=== PATIENT | female | born 2000 | race Caucasian/White ===

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

== ENCOUNTER 2021-08-16 14:25 | Emergency (ER) | payer BC, SELFPAY ==
[2021-08-16 14:44] VITALS: BP 125/85; PULSE 86; RESP 16; TEMP 37.2; O2SAT 97
--- NOTE | 2021-08-16 17:19 | CTR_ITS ---
PROCEDURE INFORMATION: Exam: CT Abdomen And Pelvis With Contrast Exam date and time: 08/16/2021 7:14 PM Age: 20 years old Clinical indication: Abdominal pain; Flank; Right; Additional info: Right side abdominal pain, n/v TECHNIQUE: Imaging protocol: Computed tomography of the abdomen and pelvis with contrast. Radiation optimization: All CT scans at this facility use at least one of these dose optimization techniques: automated exposure control; mA and/or kV adjustment per patient size (includes targeted exams where dose is matched to clinical indication); or iterative reconstruction. Contrast material: OMNI 350; Contrast volume: 95 ml; Contrast route: INTRAVENOUS (IV); COMPARISON: CT Abdomen/Pelvis Renal [id number] 03/25/2019 7:19 PM RADIATION DOSE METRICS: Total DLP (mGy-cm): 857.63 FINDINGS: Lungs: Lung bases are clear. Liver: The liver is normal. Gallbladder and bile ducts: The gallbladder is normal. There is no biliary dilation. Pancreas: The pancreas is unremarkable. Spleen: The spleen is unremarkable. Adrenal glands: The adrenal glands are unremarkable. Kidneys and ureters: The kidneys are unremarkable. No hydronephrosis or stones. No ureteral dilation. Stomach and bowel: The stomach is unremarkable. The small bowel is nondilated. The colon is unremarkable. Appendix: The appendix is not visible. Intraperitoneal space: There is no free air or significant intraperitoneal free fluid. Vasculature: The aorta is unremarkable. There is no aneurysm. The portal, splenic and superior mesenteric veins are patent. Lymph nodes: There is no lymphadenopathy in the retroperitoneum, mesentery, pelvis or inguinal regions. Urinary bladder: The urinary bladder is unremarkable. The urinary bladder is unremarkable. Reproductive: The uterus is unremarkable. There is no adnexal mass or large cyst. Bones/joints: Bones are unremarkable. Soft tissues: The abdominal wall is intact. CT/CT abdomen pelvis w con* [id number] IMPRESSION: No acute findings.
--- NOTE | 2021-08-16 17:20 | ED_ITS ---
HPI - Abdominal Pain General: Chief Complaint: Abdominal Pain Stated Complaint: Gallbladder pain Time Seen by Provider: 08/16/21 17:05 History of Present Illness: Patient is a 20-year-old female comes to the ED with abdominal pain. Symptoms started approximately 1 month ago. Over the last 24 hours her abdominal pain is gotten worse. The abdominal pain is located in the right side of the abdomen and she rates her pain an 8 out of 10. Pain is constant. Pain radiates to right lower back as well. She is having nausea and vomiting and she is having trouble keeping food and fluids down over the last 24 hours. She reports feeling a subjective fever today and took some Tylenol earlier during the day. Eating food worsens the pain. Associated Symptoms: Reports nausea and vomiting; Denies chills, constipation, diarrhea, dysuria, fever(s), hematochezia and hematuria Review of Systems Const: Denies: fever(s), chills or fatigue Eyes: Denies: change in vision or eye discomfort ENMT: Denies: throat pain, odynophagia, nasal discharge or nasal congestion Card: Denies: chest pain, palpitations, edema, swelling of feet/ankles, dyspnea on exertion or orthopnea Resp: Denies: dyspnea, productive cough or non-productive cough GI: Reports: abdominal pain, nausea and vomiting; Denies: diarrhea, constipation or hematochezia : Denies: flank pain, dysuria or hematuria Musc: Denies: neck pain, back pain or extremity swelling Skin/Breast: Denies: rash or new lesions Neuro: Denies: headache(s), numbness in extremities or weakness in extremities PFS ED PFSH: Medical History Aspergillosis, allergic bronchopulmonary (~2009) treated and managed No pertinent past medical history neghx: htn,dm,thyroid,dvt/pe PCP: Alea Antoine Surgical History History of endoscopy (~2009) History of lung biopsy (~2010) History of tonsillectomy and adenoidectomy (~2012) Hx of colonoscopy (~2009) Family History Father Heart disease Denies family history of Colon cancer Ovarian cancer Diabetes Hypercholesteremia Breast cancer Hypertension Uterine cancer Thyroid disease Stroke Physical Exam Const: COMMON NORMALS: patient oriented x3 and alert GENERAL APPEARANCE: cooperative and comfortable HENMT: COMMON NORMALS: normocephalic HEAD & SCALP: normocephalic MOUTH: Normal oral and palatal mucosa present THROAT: posterior oropharynx normal and uvula midline Eye: COMMON NORMALS: Equal, round and reactive pupils present and conjunctivae normal CONJUNCTIVA: Yes conjunctivae normal PUPIL: Yes Equal, round and reactive pupils present Neck/C-Spine: COMMON NORMALS: supple GENERAL: Yes normal visual inspection Resp: COMMON NORMALS: normal respiratory effort, No retractions, No use of accessory muscles and clear to auscultation bilaterally AUSCULTATION: clear to auscultation bilaterally Cardio: COMMON NORMALS: regular rate, regular rhythm, S1 normal heart sound present, S2 normal heart sound present, No gallops present (Cardio), No clicks present (Cardio), No murmurs present (Cardio) and Peripheral pulses 2+ throughout RATE: regular rate RHYTHM: regular rhythm HEART SOUNDS: S1 normal heart sound present and S2 normal heart sound present PERIPHERAL PULSES: Peripheral pulses 2+ throughout GI: COMMON NORMALS: Normal to inspection, nondistended, normoactive bowel sounds present, Soft to palpation and no masses PALPATION: Yes Soft to palpation and Yes Tenderness to palpation present (GI) Details: RLQ and RUQ : COMMON NORMALS: Yes no CVA tenderness BLADDER/KIDNEY EXAM: Yes no CVA tenderness Back/Pelvis: COMMON NORMALS: no CVA tenderness Extremity: COMMON NORMALS: normal to inspection Neuro: COMMON NORMALS: patient oriented x3 SENSORIUM/ORIENTATION: Yes alert GAIT: Yes Normal gait present Skin: GENERAL SKIN EXAM: dry skin Course Vital Signs: Vital signs: Vital Signs Temperature 98.9 F 08/16/21 21:20 Pulse Rate 82 08/16/21 21:20 Respiratory Rate 17 08/16/21 21:20 Blood Pressure 119/69 08/16/21 21:20 Pulse Oximetry 97 08/16/21 21:20 MDM - Abdominal Pain Medical Decision Making Patient is a 20-year-old female comes to the ED with abdominal pain, nausea and vomiting. Symptoms have been going on now for over a month but says they worsened over the past couple days. Vitals are stable. Patient appears nontoxic and in no acute distress or pain. She has some generalized tenderness throughout the right side of her abdomen. Rest of exam is benign. Labs are unremarkable. UA showed no signs of any infection. hCG negative. CT of abdomen pelvis showed no acute findings. Patient diagnosed with abdominal pain with no acute cause identified. She was discharged home with a prescription for Zofran. She was told to follow-up with her PCP in the next week for reevaluation. Return to ED precautions given. Patient understood and agreed with plan. Lab Data I reviewed the patient's lab results. : 08/16/21 17:14 08/16/21 17:14 Labs/Radiology: Radiology Impressions Abdomen/Pelvis CT 08/16/21 17:19 IMPRESSION: No acute findings. Laboratory Results WBC 9.2 10^3/uL (4.5-13.0) 08/16/21 17:14 RBC 4.42 10^6/uL (4.1-5.3) 08/16/21 17:14 Hgb 13.4 g/dL (11.5-15.3) 08/16/21 17:14 Hct 40.2 % (37.0-47.0) 08/16/21 17:14 MCV 91.0 fl (81-99) 08/16/21 17:14 MCH 30.3 pg (28.0-34.0) 08/16/21 17:14 MCHC 33.3 g/dL (30.0-36.0) 08/16/21 17:14 RDW 12.6 % (12.1-15.1) 08/16/21 17:14 Plt Count 308 10^3/cmm (130-400) 08/16/21 17:14 MPV 10.4 fL (7.4-10.4) 08/16/21 17:14 Neut % (Auto) 71.9 % 08/16/21 17:14 Lymph % (Auto) 23.7 % 08/16/21 17:14 [place] % (Auto) 3.5 % 08/16/21 17:14 Eos % (Auto) 0.0 % 08/16/21 17:14 Baso % (Auto) 0.7 % 08/16/21 17:14 Neut # (Auto) 6.60 10^3/uL (1.8-8.0) 08/16/21 17:14 Lymph # (Auto) 2.2 10^3/uL (1.5-6.5) 08/16/21 17:14 [place] # (Auto) 0.3 10^3/uL (0.2-0.9) 08/16/21 17:14 Eos # (Auto) 0.0 10^3/uL (0.0-0.8) 08/16/21 17:14 Baso # (Auto) 0.1 10^3/uL (0.0-0.1) 08/16/21 17:14 Nucleated RBC % (auto) 0 % 08/16/21 17:14 Nucleated RBCs # 0.0 /100WBC 08/16/21 17:14 Sodium 140 mmol/L (136-145) 08/16/21 17:14 Potassium 3.6 mmol/L (3.5-5.1) 08/16/21 17:14 Chloride 105 mmol/L (98-107) 08/16/21 17:14 Carbon Dioxide 20 mmol/L (22-29) L 08/16/21 17:14 Anion Gap 18.6 (5-19) 08/16/21 17:14 BUN 9 mg/dL (6-20) 08/16/21 17:14 Creatinine 0.6 mg/dL (0.5-0.9) 08/16/21 17:14 GFR Calculation 128.8 mL/min (90-130) 08/16/21 17:14 Glucose 76 mg/dL (65-115) 08/16/21 17:14 Calculated Osmolality 287 mOsm/kg (285-295) 08/16/21 17:14 Calcium 9.4 mg/dL (8.5-10.5) 08/16/21 17:14 Total Bilirubin 0.4 mg/dL (0.15-1.2) 08/16/21 17:14 AST 13 U/L (0-32) 08/16/21 17:14 ALT 8 U/L (0-33) 08/16/21 17:14 Alkaline Phosphatase 34 IU/L (35-105) L 08/16/21 17:14 Total Protein 7.1 g/dL (6.6-8.7) 08/16/21 17:14 Albumin 4.5 g/dL (3.5-5.2) 08/16/21 17:14 Globulin 2.6 g/dL (1.3-4.6) 08/16/21 17:14 Lipase 16 U/L (13-60) 08/16/21 17:14 HCG, Qual Negative (Negative) 08/16/21 18:08 Urine Color Yellow (Yellow) 08/16/21 19:00 Urine Appearance Clear (CLEAR) 08/16/21 19:00 Urine pH 6.5 (5-7) 08/16/21 19:00 Ur Specific [place] 1.000 (1.005-1.030) L 08/16/21 19:00 Urine Protein Trace (Negative) 08/16/21 19:00 Urine Glucose (UA) Norm (Normal) 08/16/21 19:00 Urine Ketones 2+ (Negative) H 08/16/21 19:00 Urine Blood 3+ (Negative) H 08/16/21 19:00 Urine Nitrate Negative (Negative) 08/16/21 19:00 Urine Bilirubin Neg (Negative) 08/16/21 19:00 Urine Urobilinogen Norm mg/dL (Negative) 08/16/21 19:00 Ur Leukocyte Esterase Trace (Negative) H 08/16/21 19:00 Urine RBC 10-15 /hpf (0-2) H 08/16/21 19:00 Urine WBC 0-4 /hpf (0-5) H 08/16/21 19:00 Ur Squamous Epith Cells 5-10 /hpf (0-5) H 08/16/21 19:00 Amorphous Sediment Not Reportable 08/16/21 19:00 Urine Bacteria Trace /hpf (NONE) 08/16/21 19:00 Urine Mucus Trace /hpf 08/16/21 19:00 Discharge Plan Discharge Patient Disposition: Home Clinical Impression: Abdominal pain Qualifiers: Abdominal location: generalized Qualified Code(s): R10.84 - Generalized abdominal pain Condition: Stable Prescriptions: New ondansetron 4 mg tablet,disintegrating 4 mg PO Q8H PRN (Reason: nausea and vomiting) Qty: 15 0RF No Action Xulane 150-35 mcg/24 hr patch weekly 1 patch transdermal Q7D Qty: 9 3RF Rx Instructions: apply once weekly for 3 weeks of a 4-week cycle Discharge Orders: Discharge ED (Routine); Ordered 08/16/21 Ordered By: Micah Collins: Alea Antoine MD [Staff Physician] - Discharge Diet: Regular Discharge Activity: Increase activity as tolerated Patient Instructions: Abdominal Pain (ED) Activity Restrictions/Additional Instructions: Follow-up with medical provider as directed in the next 5 to 7 days for reevaluation. Take medications as prescribed. Return to the ER or your medical provider if condition worsens. Please read and understand discharge instructions. Thank you for choosing [facility] for your healthcare needs today. Please realize this is an emergency room and that we are providing you with a medical screening exam and this may not be complete and all inclusive of all the testing and or work up that you may need to determine your ailment or severity of your illness. It is very important that you follow up as instructed or that you return to the Emergency Department should you have concerns or if your condition changes or worsens in any way. Coding Level of Care Code ED [facility] [employer] Exam Comprehensive
[2021-08-16 17:35] VITALS: RESP 17
[2021-08-16] MEDS: morphine 4 mg/mL SDV 1 mL IVP (17:35)
[2021-08-16] MEDS: sodium chloride 0.9% 1,000 ML 999 ML IV (17:36)
[2021-08-16] MEDS: ondansetron 2 mg/ML SDV 2 mL 4 MG IVP (17:36)
[2021-08-16 17:39] LABS: Basophils # 0.1 10^3/uL (0.0-0.1); Basophils % 0.7 %; Hematocrit 40.2 % (37.0-47.0); Hemoglobin 13.4 g/dL (11.5-15.3); Lymphocytes # 2.2 10^3/uL (1.5-6.5); Lymphocytes % 23.7 %; Mean Corpuscular HGB Conc 33.3 g/dL (30.0-36.0); Mean Corpuscular Hemoglobin 30.3 pg (28.0-34.0); Mean Platelet Volume 10.4 fL (7.4-10.4); Monocytes # 0.3 10^3/uL (0.2-0.9); Monocytes % 3.5 %; Neutrophils % 71.9 %; Nucleated Red Blood Cells % 0 %; Platelet Count 308 10^3/cmm (130-400); Red Blood Count 4.42 10^6/uL (4.1-5.3); Red Cell Distribution Width 12.6 % (12.1-15.1); White Blood Count 9.2 10^3/uL (4.5-13.0)
[2021-08-16 18:03] LABS: Alanine Aminotransferase 8 U/L (0-33); Albumin Level 4.5 g/dL (3.5-5.2); Alkaline Phosphatase 34 IU/L (35-105); Anion Gap 18.6 (5-19); Aspartate Amino Transferase 13 U/L (0-32); Blood Urea Nitrogen 9 mg/dL (6-20); Calcium 9.4 mg/dL (8.5-10.5); Carbon Dioxide 20 mmol/L (22-29); Chloride 105 mmol/L (98-107); Globulin 2.6 g/dL (1.3-4.6); Glomerular Filtration Rate 128.8 mL/min (90-130); Glucose 76 mg/dL (65-115); Lipase 16 U/L (13-60); Osmolality Calculated 287 mOsm/kg (285-295); Potassium 3.6 mmol/L (3.5-5.1); Sodium 140 mmol/L (136-145); Total Bilirubin 0.4 mg/dL (0.15-1.2); Total Protein 7.1 g/dL (6.6-8.7)
[2021-08-16 18:58] LABS: HCG, Serum Qual Negative (Negative)
[2021-08-16] MEDS: iohexol 350 mg/mL 100 mL Btl IV (19:12)
[2021-08-16 20:19] VITALS: BP 119/69; PULSE 82; RESP 17; TEMP 37.2; O2SAT 97
[2021-08-16 21:01] LABS: Add Urine Microscopic? YES; Bilirubin Urine Neg (Negative); Blood Urine 3+ (Negative); Glucose Urine UA Norm (Normal); Ketones Urine 2+ (Negative); Leukocyte Esterase Urine Trace (Negative); Nitrate Urine Negative (Negative); Protein Urine Trace (Negative); Urine Appearance Clear (CLEAR); Urine Color Yellow (Yellow); Urobilinogen Urine Norm (Negative); pH Urine 6.5 (5-7)
[2021-08-16 21:10] LABS: Add Urine Culture? No; Bacteria Urine TRACE /hpf; Mucus Urine TRACE /hpf; WBC Urine 0-4 /hpf (0-5)
[2021-08-16 21:20] VITALS: BP 119/69; PULSE 82; RESP 17; TEMP 37.2; O2SAT 97
== END 2021-08-16 21:23 | disposition home or self-care (01) ==
PROVIDERS: Physician Assistant; Emergency Provider Physician Assistant
DX: R10.84 Generalized abdominal pain (principal)
CPT/HCPCS: 74177; 80053; 81001; 83690; 84703; 85025; 96361; 96374; 96375; 99284; J2270; J2405; J7030; Q9967

== ENCOUNTER 2021-08-31 09:15 | Outpatient (CLI) | payer BC, SELFPAY ==
--- NOTE | 2021-08-31 09:25 | US_ITS ---
WS: [id number] RIGHT UPPER QUADRANT ULTRASOUND HISTORY: RUQ PAIN COMPARISON: 03/29/[address] 08/16/2021 Liver: 9.9 cm in length. Normal size liver. No bile duct dilatation or mass. Portal Vein: Normal hepatopetal flow with monophasic waveform. Gallbladder: Normally distended gallbladder. There is a soft tissue nodule towards the neck of the ga llbladder which does not shadow and with no increased vascularity. This nodule does not move with pos itioning. Soft tissue nodule measures 7 x 5 x 9 mm. CBD: 0.2 cm Pancreas: Normal size and echogenicity. Right kidney: 8.4 cm in length. Normal size and echogenicity. No hydronephrosis or mass. Aorta and IVC: Unremarkable abdominal aorta and IVC. No ascites. US/US abdomen limited [id number] IMPRESSION: 1. Nonshadowing soft tissue nodule measuring 7 x 5 x 9 mm towards the neck of the gallbladder. This may be tumefactive sludge, polyp or nonshadowing stone. S uggest follow-up imaging by ultrasound in 2-3 months to ensure resolution. If t his does not resolve surgical removal may be necessary. 2. No bile duct dilatation.
== END 2021-08-31 09:16 | disposition home or self-care (01) ==
PROVIDERS: Visit Provider Family Medicine
DX: R10.11 Right upper quadrant pain (principal); K82.8 Other specified diseases of gallbladder
CPT/HCPCS: 76705

== ENCOUNTER 2021-11-28 14:01 | Outpatient (CLI) | payer BC, SELFPAY ==
--- NOTE | 2021-11-28 14:25 | US_ITS ---
WS: [id number] ULTRASOUND BREAST LEFT TECHNIQUE: Ultrasound left breast focused area of concern. CLINICAL INFORMATION: N63.20 - Unspecified lump in the left breast, unspecified... COMPARISON: None. FINDINGS: Ultrasound LEFT breast 4:00 position 3 cm from the nipple demonstrates a gently lobulated slightly hy poechoic lesion measuring 1.8 x 0.6 x 1.3 cm most compatible with fibroadenoma in a patient this age. Recommend 6 month follow-up to confirm stability with ultrasound. No other suspicious lesions in the remainder of the LEFT breast. US/US breast LT complete [id number] IMPRESSION: BI-RADS 3 probably benign FOLLOW UP: 6 month follow-up LEFT breast ultrasound
== END 2021-11-28 14:02 | disposition home or self-care (01) ==
LOC: RAD 14:02
PROVIDERS: PCP Family Medicine; Visit Provider Nurse Practitioner Women's Health
DX: N63.20 Unspecified lump in the left breast, unspecified quadrant (principal)
CPT/HCPCS: 76641

== ENCOUNTER 2023-04-17 09:24 | Emergency (ER) | payer OTHER, BC, SELFPAY ==
[2023-04-17] VITALS (7 sets, daily range): BP systolic 103–160; BP diastolic 50–77; PULSE 68–80; RESP 18; TEMP 36.4; O2SAT 94–100; BMI 18.6
[2023-04-17 12:13] LABS: Basophils # 0.1 10^3/uL (0.0-0.1); Basophils % 0.7 %; Eosinophils # 0.1 10^3/uL (0.0-0.8); Hematocrit 41.2 % (36-47); Lymphocytes # 2.3 10^3/uL (0.8-4.8); Mean Corpuscular HGB Conc 34.2 g/dL (30-55); Mean Corpuscular Hemoglobin 30.7 pg (27-33); Mean Corpuscular Volume 89.8 fl (85-98); Mean Platelet Volume 8.7 fL (7.4-10.4); Monocytes # 0.4 10^3/uL (0.2-0.9); Monocytes % 5.1 %; Neutrophils # 4.44 10^3/uL (1.8-7.7); Neutrophils % 60.9 %; Nucleated Red Blood Cells % 0 %; Platelet Count 329 10^3/cmm (157-399); Red Blood Count 4.59 10^6/uL (3.85-5.65); Red Cell Distribution Width 12.2 % (12.1-15.1); White Blood Count 7.28 10^3/uL (3.29-11.43)
[2023-04-17 12:34] LABS: Alanine Aminotransferase 13 U/L (0-33); Albumin Level 4.4 g/dL (3.5-5.2); Alkaline Phosphatase 52 U/L (35-105); Anion Gap 14.1 (5-19); Aspartate Amino Transferase 15 U/L (0-32); Blood Urea Nitrogen 7 mg/dL (6-20); Calcium 9.4 mg/dL (8.5-10.5); Carbon Dioxide 25 mmol/L (22-29); Chloride 104 mmol/L (98-107); Globulin 2.4 g/dL (1.3-4.6); Glomerular Filtration Rate 105.6 mL/min (90-130); Glucose 97 mg/dL (65-115); Lipase 21 U/L (13-60); Osmolality Calculated 286 mOsm/kg (285-295); Potassium 4.1 mmol/L (3.5-5.1); Sodium 139 mmol/L (136-145); Total Bilirubin 0.5 mg/dL (0.15-1.2); Total Protein 6.8 g/dL (6.6-8.7)
--- NOTE | 2023-04-17 12:45 | PC.NURSE ---
ASSUMED CARE AT 1245
--- NOTE | 2023-04-17 13:05 | CTR_ITS ---
PROCEDURE INFORMATION: Exam: CT Abdomen And Pelvis With Contrast Exam date and time: 04/17/2023 4:44 PM Age: 22 years old Clinical indication: Abdominal pain; Localized; Right; Prior surgery; Surgery date: 6+ months; Surgery type: Kavya; Additional info: Abd pain TECHNIQUE: Imaging protocol: Computed tomography of the abdomen and pelvis with contrast. Radiation optimization: All CT scans at this facility use at least one of these dose optimization techniques: automated exposure control; mA and/or kV adjustment per patient size (includes targeted exams where dose is matched to clinical indication); or iterative reconstruction. Contrast material: OMNI 350; Contrast volume: 100 ml; Contrast route: INTRAVENOUS (IV); COMPARISON: CT abdomen pelvis w con* [id number] 08/16/2021 7:14 PM RADIATION DOSE METRICS: Total DLP (mGy-cm): 316 FINDINGS: Lungs: Subsegmental bibasilar atelectasis. The visualized lung bases are otherwise grossly clear. Diaphragm: No evidence of diaphragmatic defect. Liver: There is nonspecific periportal edema. No focal hepatic lesion. Gallbladder and bile ducts: Status post cholecystectomy. No evidence of intrahepatic or extrahepatic biliary dilatation. Pancreas: Unremarkable. Spleen: Unremarkable. Adrenal glands: Unremarkable. Kidneys and ureters: No renal parenchymal abnormality. No hydronephrosis or ureteral stone. Stomach and bowel: There is wall thickening of the gastric pylorus raising the question of a nonspecific gastroenteritis or peptic ulcer disease. Consider follow-up GI evaluation. No evidence of bowel obstruction, free air or pneumatosis. Appendix: Normal appendix. Intraperitoneal space: No fluid collection. Vasculature: No aneurysmal dilatation or dissection of the abdominal aorta. No evidence of IVC thrombus. Lymph nodes: No adenopathy. Urinary bladder: Unremarkable. Reproductive: Uterus and adnexa are grossly unremarkable. Trace-small physiologic free fluid in the cul-de-sac. Bones/joints: No evidence of acute fracture or aggressive osseous lesion. Soft tissues: No evidence of fluid collection, hematoma or mass-like lesion in the superficial soft tissues. CT/CT abdomen pelvis w con* [id number] IMPRESSION: 1. Wall thickening of the gastric pylorus raising the question of a nonspecific gastroenteritis or peptic ulcer disease. Consider follow-up GI evaluation. 2. Nonspecific periportal edema, which can be seen with aggressive hydration as well as hepatitis and hepatic congestion.
--- NOTE | 2023-04-17 13:06 | ED_ITS ---
HPI - Nausea/Vomiting/Diarrhea 2 General: Chief complaint: Nausea/Vomiting/Diarrhea Stated complaint: N/V, Right abd pain Time Seen by Provider: 04/17/23 12:59 Source: patient Mode of arrival: ambulatory History of Present Illness: 22-year-old female presents emergency ro om complaining of abdominal pain with persistent vomiting localizes pain to the right lower quadrant radiating into the back vomited multiple times this morning a few episodes of streaked blood vomitus no marita blood. Low-grade subjective fever. Denies dysuria urgency or frequency previously had a cholecystectomy no other abdominal surgeries. No coffee-ground emesis. MD elicited complaint: nausea and vomiting Onset (ago): hour(s) Associated nausea: Yes Associated abdominal pain: Yes Location of pain: RLQ Radiation: right flank Pain consistency: constant Severity: moderate Quality: cramping Exacerbating factors: none Relieving factors: none Associated symtoms: Reports nausea; Denies altered mental status, anxiety, bloating, change in vision, chest pain, cough, diaphoresis, decreased urine output, dizziness, dysuria, epistaxis, fatigue, fecal incontinence, fevers/chills, headache(s), anorexia, malaise, myalgias, numbness, palpitations, rash, short of breath, syncope, tenesmus, tinnitus or weakness Review of Systems 2 Const: Denies: fatigue, malaise or diaphoresis Eyes: Denies: change in vision ENMT: Denies: tinnitus or epistaxis Card: Denies: chest pain, palpitations or syncope Resp: Denies: dyspnea GI: Reports: nausea; Denies: bloating or fecal incontinence : Denies: dysuria Musc: Denies: neck pain or back pain Skin/Breast: Denies: rash Neuro: Denies: headache(s) or dizziness Psych: Denies: anxiety PFSH ED 2 PFSH: Medical History Aspergillosis, allergic bronchopulmonary (~2009) treated and managed No pertinent past medical history neghx: htn,dm,thyroid,dvt/pe PCP: Alea Antoine Surgical History History of endoscopy (~2009) History of lung biopsy (~2010) History of tonsillectomy and adenoidectomy (~2012) Hx laparoscopic cholecystectomy (~09/22/21) Hx of colonoscopy (~2009) Family History Father Heart disease Denies family history of Colon cancer Ovarian cancer Diabetes Hypercholesteremia Breast cancer Hypertension Uterine cancer Thyroid disease Stroke Physical Exam 2 Const: COMMON NORMALS: no acute distress EXAM LIMITATIONS: no altered mental status GENERAL APPEARANCE: cooperative and comfortable O RIENTATION/CONSCIOUSNESS: Yes awake, Yes oriented to person, Yes oriented to place and Yes oriented to time HENMT: COMMON NORMALS: normocephalic, atraumatic and hearing grossly normal bilaterally HEAD & SCALP: normocephalic and atraumatic Resp: COMMON NORMALS: normal respiratory effort, No retractions, No use of accessory muscles and clear to auscultation bilaterally AUSCULTATION: clear to auscultation bilaterally Cardio: COMMON NORMALS: regular rate, regular rhythm and No murmurs present (Cardio) RATE: regular rate RHYTHM: regular rhythm GI: COMMON NORMALS: Soft to palpation and No hepatosplenomegaly present A USCULTATION: Yes normoactive bowel sounds PALPATION: Yes Soft to palpation, No Tenderness to palpation present (GI), No Guarding due to palpation present (GI) and Yes No hepatosplenomegaly present Extremity: COMMON NORMALS: normal to inspection, capillary refill normal, no clubbing, cyanosis or edema, no calf tenderness and no pedal edema Neuro: SENSORIUM/ORIENTATION: Yes oriented to person, Yes oriented to place and Yes oriented to time Skin: COMMON NORMALS: no rashes or lesions noted GENERAL SKIN EXAM: no rashes or lesions noted Course 2 Vital Signs: Vital signs: Vital Signs Temperature 97.6 F 04/17/23 09:26 Pulse Rate 79 04/17/23 17:46 Respiratory Rate 18 04/17/23 09:26 Blood Pressure 103/61 04/17/23 17:46 Pulse Oximetry 95 04/17/23 17:46 Oxygen Delivery Me thod Room Air 04/17/23 16:37 MDM - Nausea/Vomiting/Diarrhea Medical Decision Making Respiratory panel positive for RSV. Patient is tolerating well COVID and flu were negative. CT shows gastric thickening no signs of active bleeding clinically BUN not markedly elevated. Suspect is secondary to gastritis. Treat symptoms. Discharge home follow-up as needed Medical Records I reviewed the patient's medical records. Lab Data I reviewed the patient's lab results. 04/17/23 11:58 04/17/23 11:58 Radiology Impressions Abdomen/Pelvis CT 04/17/23 13:05 IMPRESSION: 1. Wall thickening of the gastric pylorus raising the question of a nonspecific gastroenteritis or peptic ulcer disease. Consider follow-up GI evaluation. 2. Nonspecific periportal edema, which can be seen with aggressive hydration as well as hepatitis and hepatic congestion. Chest X-Ray 04/17/23 17:10 IMPRESSION: 1. No acute cardiopulmonary abnormality. Index ADDENDUM: 04/17/23 6505 IMPRESSION: 1. No acute cardiopulmonary abnormality. The word index was entered in error. Laboratory Results WBC 7.28 10^3/uL (3.29-11.43) 04/17/23 11:58 RBC 4.59 10^6/uL (3.85-5.65) 04/17/23 11:58 Hgb 14.10 g/dL (11.27-16.99) 04/17/23 11:58 Hct 41.2 % (36-47) 04/17/23 11:58 MCV 89.8 fl (85-98) 04/17/23 11:58 MCH 30.7 pg (27-33) 04/17/23 11:58 MCHC 34.2 g/dL (30-55) 04/17/23 11:58 RDW 12.2 % (12.1-15.1) 04/17/23 11:58 Plt Count 329 10^3/cmm (157-399) 04/17/23 11:58 MPV 8.7 fL (7.4-10.4) 04/17/23 11:58 Neut % (Auto) 60.9 % 04/17/23 11:58 Lymph % (Auto) 32.0 % 04/17/23 11:58 [place] % (Auto) 5.1 % 04/17/23 11:58 Eos % (Auto) 1.0 % 04/17/23 11:58 Baso % (Auto) 0.7 % 04/17/23 11:58 Neut # (Auto) 4.44 10^3/uL (1.8-7.7) 04/17/23 11:58 Lymph # (Auto) 2.3 10^3/uL (0.8-4.8) 04/17/23 11:58 [place] # (Auto) 0.4 10^3/uL (0.2-0.9) 04/17/23 11:58 Eos # (Auto) 0.1 10^3/uL (0.0-0.8) 04/17/23 11:58 Baso # (Auto) 0.1 10^3/uL (0.0-0.1) 04/17/23 11:58 Nucleated RBC % (auto) 0 % 04/17/23 11:58 Nucleated RBCs # 0.0 /100WBC 04/17/23 11:58 Sodium 139 mmol/L (136-145) 04/17/23 11:58 Potassium 4.1 mmol/L (3.5-5.1) 04/17/23 11:58 Chloride 104 mmol/L (98-107) 04/17/23 11:58 Carbon Dioxide 25 mmol/L (22-29) 04/17/23 11:58 Anion Gap 14.1 (5-19) 04/17/23 11:58 BUN 7 mg/dL (6-20) 04/17/23 11:58 Creatinine 0.7 mg/dL (0.5-0.9) 04/17/23 11:58 GFR Calculation 105.6 mL/min (90-130) 04/17/23 11:58 Glucose 97 mg/dL (65-115) 04/17/23 11:58 Calculated Osmolality 286 mOsm/kg (285-295) 04/17/23 11:58 Calcium 9.4 mg/dL (8.5-10.5) 04/17/23 11:58 Total Bilirubin 0.5 mg/dL (0.15-1.2) 04/17/23 11:58 AST 15 U/L (0-32) 04/17/23 11:58 ALT 13 U/L (0-33) 04/17/23 11:58 Alkaline Phosphatase 52 U/L (35-105) 04/17/23 11:58 Total Protein 6.8 g/dL (6.6-8.7) 04/17/23 11:58 Albumin 4.4 g/dL (3.5-5.2) 04/17/23 11:58 Globulin 2.4 g/dL (1.3-4.6) 04/17/23 11:58 Lipase 21 U/L (13-60) 04/17/23 11:58 HCG, Qual Negative (Negative) 04/17/23 14:45 Urine Color Dark yellow (Yellow) 04/17/23 14:45 Urine Appearance Hazy (CLEAR) A 04/17/23 14:45 Urine pH 6 (5-7) 04/17/23 14:45 Ur Specific [place] 1.020 (1.005-1.030) 04/17/23 14:45 Urine Protein Neg (Negative) 04/17/23 14:45 Urine Glucose (UA) Norm (Normal) 04/17/23 14:45 Urine Ketones Negative (Negative) 04/17/23 14:45 Urine Blood Neg (Negative) 04/17/23 14:45 Urine Nitrate Negative (Negative) 04/17/23 14:45 Urine Bilirubin Neg (Negative) 04/17/23 14:45 Urine Urobilinogen Norm mg/dL (Negative) 04/17/23 14:45 Ur Leukocyte Esterase Negative (Negative) 04/17/23 14:45 Urine RBC 0-4 /hpf (0-2) H 04/17/23 14:45 Urine WBC 0-4 /hpf (0-5) H 04/17/23 14:45 Ur Squamous Epith Cells 10-15 /hpf (0-5) H 04/17/23 14:45 Amorphous Sediment Not Reportable 04/17/23 14:45 Urine Bacteria 1+ /hpf (NONE) H 04/17/23 14:45 Urine Mucus 3+ /hpf 04/17/23 14:45 Urine Opiates Screen Positive ng/mL (Negative) H 04/17/23 14:45 Ur Barbiturates Screen Negative ng/mL (Negative) 04/17/23 14:45 Ur Phencyclidine Scrn Negative ng/mL (Negative) 04/17/23 14:45 Ur Amphetamines Screen Negative ng/mL (Negative) 04/17/23 14:45 U Benzodiazepines Scrn Negative ng/mL (Negative) 04/17/23 14:45 Urine Cocaine Screen Negative ng/mL (Negative) 04/17/23 14:45 U Marijuana (THC) Screen Negative ng/mL (Negative) 04/17/23 14:45 Coronavirus 229E (PCR) Not detected (NOT DETECT) 04/17/23 12:55 Influenza Type A Ag negative (Negative) 04/17/23 12:56 Influenza Type B Ag negative (Negative) 04/17/23 12:56 RSV Type A (PCR) Detected (NOT DETECT) A 04/17/23 15:29 RSV Type B (PCR) Not detected (NOT DETECT) 04/17/23 15:29 SARS-CoV-2 (PCR) Not detected (NOT DETECT) 04/17/23 12:55 All radiology interpretation(s) finalized by discharge Discharge Plan Discharge Patient Disposition: Home Clinical Impression: RSV (respiratory syncytial virus pneumonia), Gastroenteritis Condition: Stable Prescriptions: New promethazine 25 mg tablet 25 mg PO Q6H PRN (Reason: nausea and vomiting) Qty: 10 0RF No Action Lactaid 3,000 unit Tablet 3,000 unit PO QID PRN (Reason: Diarrhea) Rx Instructions: administer with meals and/or snacks omeprazole 20 mg Tablet,Delayed Release (Dr/Ec) 20 mg PO BID [place] Fe 05/04 (28) 1 mg-20 mcg (21)/75 mg (7) tablet 1 tab PO DAILY Discharge Orders: Discharge ED (Routine); Ordered 04/17/23 Ordered By: Marko Abdi Referrals: Alea Antoine MD [Primary Care Provider] - Discharge Diet: Clear Liquid Discharge Activity: Increase activity as tolerated Patient Instructions: Opioid Safety, Pain Management Activity Restrictions/Additional Instructions: Thank you for choosing [facility] for your healthcare needs today. Please realize this is an emergency room and that we are providing you with a medical screening exam and this may not be complete and all inclusive of all the testing and or work up that you may need to determine your ailment or severity of your illness. It is very important that you follow up as instructed or that you return to the Emergency Department should you have concerns or if your condition changes or worsens in any way. You were seen today for stomach pain and cough. Your RSV was positive on the swabs. The CT scan shows irritation to the stomach but no other significant pathology other lab work was unremarkable. Coding Level of Care Code ED Mathematical Engineering Technician for Yaritza Delarosa
[2023-04-17] MEDS: sodium chloride 0.9% 1,000 ML 999 ML IV ×2 (13:20→14:30)
[2023-04-17] MEDS: ondansetron 2 mg/ML SDV 2 mL 4 MG IVP (13:20)
[2023-04-17] MEDS: morphine 4 mg/mL SDV 1 mL 2 MG IVP (13:21)
[2023-04-17 13:31] LABS: Influenza A by IFA negative (Negative); Influenza B by IFA negative (Negative)
[2023-04-17 14:59] LABS: Adenovirus Not Detected (NOT DETECT); Chlamydia Pneumoniae Not Detected (NOT DETECT); Coronavirus 229E,HKU1,NL63,OC4 Not Detected (NOT DETECT); Human Metapneumovirus Not Detected (NOT DETECT); Human Rhinovirus/Enterovirus Not Detected (NOT DETECT); Influenza A Not Detected (NOT DETECT); Influenza A H1 Not Detected (NOT DETECT); Influenza A H1-2009 Not Detected (NOT DETECT); Influenza A H3 Not Detected (NOT DETECT); Influenza B Not Detected (NOT DETECT); Mycoplasma Pneumoniae Not Detected (NOT DETECT); Parainfluenza Virus Type 1 Not Detected (NOT DETECT); Parainfluenza Virus Type 2 Not Detected (NOT DETECT); Parainfluenza Virus Type 3 Not Detected (NOT DETECT); Parainfluenza Virus Type 4 Not Detected (NOT DETECT); Respiratory Syncytial Virus A Detected (NOT DETECT); Respiratory Syncytial Virus B Not Detected (NOT DETECT); SARS-COV-2 Not Detected (NOT DETECT)
[2023-04-17 15:09] LABS: Amphetamines Screen Urine Negative (Negative); Barbiturates Screen Urine Negative (Negative); Benzodiazepines Screen Urine Negative (Negative); Cocaine Screen Urine Negative (Negative); Opiate Screen Urine Positive (Negative); PCP Screen Urine Negative (Negative); THC Screen Urine Negative (Negative)
[2023-04-17 15:16] LABS: HCG Qualitative Urine. Negative (Negative)
[2023-04-17 15:22] LABS: Bacteria Urine 1+ /hpf; Bilirubin Urine Neg (Negative); Blood Urine Neg (Negative); Glucose Urine UA Norm (Normal); Ketones Urine Negative (Negative); Leukocyte Esterase Urine Negative (Negative); Nitrate Urine Negative (Negative); Protein Urine Neg (Negative); RBC Urine 0-4 /hpf (0-2); Urine Appearance Hazy (CLEAR); Urine Color Dark Yellow (Yellow); Urobilinogen Urine Norm (Negative); WBC Urine 0-4 /hpf (0-5); pH Urine 6 (5-7)
[2023-04-17 15:23] LABS: Add Urine Culture? No; Mucus Urine 3+ /hpf
[2023-04-17 15:30] LABS: Results from Genmark
[2023-04-17 15:31] LABS: Respiratory Syncytial Virus A Detected (NOT DETECT); Respiratory Syncytial Virus B Not Detected (NOT DETECT)
[2023-04-17] MEDS: metoclopramide 5 mg/mL SDV 2 mL 10 MG IVP (16:36)
[2023-04-17] MEDS: iohexol 350 mg/mL 500 mL Btl (per mL) IV (16:37)
--- NOTE | 2023-04-17 17:10 | XRR_ITS ---
PROCEDURE INFORMATION: Exam: XR Chest Exam date and time: 04/17/2023 5:30 PM Age: 22 years old Clinical indication: Cough and dyspnea; Additional info: Dyspnea/cough TECHNIQUE: Imaging protocol: Radiologic exam of the chest. Views: 1 view. COMPARISON: CT abdomen pelvis w con* [id number] 04/17/2023 4:44 PM FINDINGS: Lungs: No focal consolidation or evidence of airspace disease. Pleural spaces: No evidence of pneumothorax or pleural effusion Heart/Mediastinum: Cardiomediastinal silhouette is within normal limits. Bones/joints: No evidence of acute osseous abnormality. XR/XR chest 1V portable [id number] IMPRESSION: 1. No acute cardiopulmonary abnormality. Index
== END 2023-04-17 17:45 | disposition home or self-care (01) ==
PROVIDERS: Emergency Medicine; Emergency Provider Family Medicine; PCP Family Medicine
DX: K52.9 Noninfective gastroenteritis and colitis, unspecified (principal); J22 Unspecified acute lower respiratory infection; Z11.52 Encounter for screening for COVID-19
CPT/HCPCS: 36415; 71045; 74177; 80053; 80306; 81001; 81025; 83690; 85025; 87635; 87801; 87804; 96361; 96374; 96375; 99285; J2270; J2405; J2765; J7030; Q9967

== ENCOUNTER → 2024-12-01 13:38 | Outpatient (BNVA) | payer BC, SELFPAY | PROVIDERS: PCP Family Medicine; Visit Provider Nurse Practitioner Women's Health | DX: N92.6 Irregular menstruation, unspecified (principal) | CPT/HCPCS: 80053; 82306; 83001; 83002; 83036; 83520; 83525; 84144; 84146; 84402; 84403; 84443; 85025 ==

== ENCOUNTER → 2024-12-03 13:07 | Outpatient (BNVA) | payer BC, SELFPAY | PROVIDERS: PCP Family Medicine; Visit Provider Nurse Practitioner Women's Health | DX: N93.9 Abnormal uterine and vaginal bleeding, unspecified (principal) | CPT/HCPCS: 76830 ==